=== PATIENT | male | born 1940 | race Asian ===

== ENCOUNTER → 2018-01-01 | Outpatient (CLI) | payer MEDICARE, OTHER ==
[~2018-01-01] MED LIST: IOVERSOL 350 MG/ML 100 ML VIAL ONE; SODIUM CHLORIDE 0.9% 100 ML ONE
== END | disposition home or self-care (01) ==
LOC: RADMN 08:23
PROVIDERS: ATTEND Specialist
DX: H05.242 Constant exophthalmos, left eye (principal)
CPT/HCPCS: 70487; J7050; Q9967